=== PATIENT | female | born 1980 | race Caucasian/White ===

== ENCOUNTER 2019-07-27 15:22 | Emergency (ER) | payer OTHER, SELFPAY ==
[2019-07-27 15:50] VITALS: BP 117/65; PULSE 97; RESP 21; TEMP 36.6; O2SAT 97
--- NOTE | 2019-07-27 16:11 | ED.URI ---
HPI - URI/Sore Throat General Chief Complaint: Upper Respiratory Infection Stated Complaint: Cough/Sore Throat/Rash/Difficulty Breathing Time Seen by Provider: 07/27/19 16:01 Source: patient and RN notes reviewed Mode of arrival: ambulatory Limitations: no limitations History of Present Illness HPI Narrative: Patient presents today complaining of a 2-month history of sore throat, headache, congestion, intermittent shortness of breath. She reports a one-week history of some bloody sputum. Denies history of asthma or COPD. States she smokes cigarettes and marijuana. She has been taking Tylenol without relief. 1 week ago, she has developed an allover body rash that starts out at hives, itchy diffusely, then scabs over when she scratches it. No one else at home with similar symptoms or rash MD elicited complaint: cough and sore throat Related Data Allergies Allergy/AdvReac Type Severity Reaction Status Date / Time No Known Allergies Allergy Mild Unverified 03/01/06 11:15 Review of Systems Review of Systems: Narrative: CONSTITUTIONAL: Denies body aches, fever, chills, or sweats. EYES: Denies visual changes, redness, or discharge. ENT: Denies rhinorrhea, congestion, or otalgia.+ Sore throat CARDIOVASCULAR: Denies chest pain, palpitations, or edema. RESPIRATORY: + Cough, occasional shortness of breath GASTROINTESTINAL: Denies abdominal pain, nausea, vomiting, or diarrhea. GENITOURINARY: Denies dysuria or hematuria. SKIN: Denies wounds.+ Pruritic rash MUSCULOSKELETAL: Denies back pain, joint pain, or myalgia. NEUROLOGIC: Denies numbness, tingling, or weakness.+ Headache PSYCH: Denies depression or anxiety. PMFSH Social History Social History (Updated 07/27/19 @ 16:15 by Alyssa Ricketts, [facility], ) Smoking status: Current every day smoker Tobacco type: cigarettes Substance use type: marijuana Comments At time of signature, I have reviewed and agree with nursing past medical, surgical, social and family history unless otherwise noted. Please see nursing chart for further information. There is no relevant family history pertinent to the presenting complaint Exam Narrative: Exam Narrative: GENERAL: Well-appearing, well-nourished, and in no acute distress. HEAD: Normocephalic, atraumatic. EYES: EOMI. No redness or drainage. Conjunctivae normal. ENT: Mucous membranes pink and moist. Nares clear. No rhinorrhea. TMs normal bilaterally. Throat mildly erythematous without edema or exudate. Uvula midline. NECK: Normal AROM. Supple. No lymphadenopathy. CHEST: No respiratory distress. Clear to auscultation. HEART: Regular rate and rhythm. No murmur appreciated. Normal peripheral pulses. ABDOMEN: Soft, nontender, nondistended, normal active bowel sounds. MUSCULOSKELETAL: No bony tenderness. EXTREMITIES: Normal range of motion. No edema. SKIN: Warm, dry. Patient's flanks show faint urticarial lesions. All extremities are covered in pinpoint scabs. NEURO: No focal deficits. Alert and oriented x3. Gait steady. PSYCH: Normal affect. No signs of depression or anxiety. Course Vital Signs Vital signs: Vital Signs Temperature 98 F 07/27/19 15:50 Pulse Rate 97 07/27/19 15:50 Respiratory Rate 21 H 07/27/19 15:50 Blood Pressure 117/65 07/27/19 15:50 Pulse Oximetry 97 07/27/19 15:50 Temperature 98 F 07/27/19 15:50 Pulse Rate 97 07/27/19 15:50 Respiratory Rate 21 H 07/27/19 15:50 Blood Pressure 117/65 07/27/19 15:50 Pulse Oximetry 97 07/27/19 15:50 Reviewed MDM - URI/Sore Throat Differential Diagnosis Differential diagnosis: Likely upper respiratory infection, sinusitis, viral infection, bronchitis and pharyngitis Critical Care Time Critical Care Time Critical Care Time: No Discharge Plan Discharge Clinical Impression: Bronchitis, Acute urticaria Upper respiratory infection Qualifiers: URI type: unspecified URI Qualified Code(s): J06.9 - Acute upper respiratory infection,
== END 2019-07-27 16:20 | disposition home or self-care (01) ==
PROVIDERS: Emergency Provider Nurse Practitioner
DX: J40 Bronchitis, not specified as acute or chronic (principal); L50.9 Urticaria, unspecified; J06.9 Acute upper respiratory infection, unspecified; J02.9 Acute pharyngitis, unspecified; F17.210 Nicotine dependence, cigarettes, uncomplicated
CPT/HCPCS: 99203; G0463

== ENCOUNTER 2025-04-09 11:31 | Emergency (ER) | payer OTHER, SELFPAY ==
--- NOTE | ~2025-04-09 | XR_ITS ---
Examination: XR chest 2V Clinical History: Leg pain; HX COPD Comparison: None Technique: PA and Lateral Findings: Cardiomediastinal silhouette normal size and configuration. Lungs clear. No acute bony abnormality. IMPRESSION: 1. No acute cardiopulmonary findings. Reviewed, dictated and finalized at location R.
[2025-04-09 11:40] VITALS: BP 118/70; PULSE 95; RESP 18; TEMP 36.6; O2SAT 100
--- OUTSIDE RECORDS SUMMARY | 2025-04-09 12:43 | XMS_ITS | Encounter Summary ---
Author Organization [employer] Address 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
--- OUTSIDE RECORDS SUMMARY | 2025-04-09 12:43 | XMS_ITS | Clinical Summary ---
Author Organization [facility] Address [facility] [place] [address] Phone Care Team Providers Care Bindery Supervisor Name Role Phone Leeanne Gamez MD Primary Care Provider [phone] Allergies No known active allergies Medications ARIPiprazole (Abilify) 5 mg tablet Take 1 Tablet (5 mg) by mouth daily. 100 Tablet 2 09/17/2023 Active FLUoxetine (PROzac) 20 mg tablet Take 1 Tablet (20 mg) by mouth daily. 100 Tablet 2 09/17/2023 Active clonazePAM (KlonoPIN) 1 mg tabletIndication s:ALEXANDER (generalized anxiety disorder) Take 1 tablet by mouth once daily 30 Tablet 02/07/2024 Active Active Problems Problem Noted Date Diagnosed Date Tobacco use 04/05/2016 Family History Medical History Relation Name Comments Breast Cancer Maternal Aunt Breast Cancer Maternal Cousin Breast Cancer Mother Relation Name Status Comments Maternal Aunt Alive Maternal Cousin Alive Mother Social History Tobacco Use Types Packs/Day Years Used Date Smoking Tobacco: Every Day Cigarettes Alcohol Use Standard Drinks/Week Comments No 0 (1 standard drink = 0.6 oz pur e alcohol) Comments Unknown Sex and Gender Information Value Date Recorded Sex Assigned at Not on file 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 Gender Identity Not on file Sexual Orientation Not on file Last Filed Vital Signs Vital Sign Reading Time Taken Comments Blood Pressure 114/76 09/13/2023 10:49 AM CDT Pulse 80 09/13/2023 10:49 AM CDT Temperature 36.3 C (97.3 F) 09/13/2023 10:49 AM CDT Respiratory Rate 17 09/24/2022 4:07 PM CDT Oxygen Saturation 96% 09/13/2023 10:49 AM CDT Inhaled Oxygen Concentration - - Weight 92.5 kg (204 lb) 09/13/2023 10:49 AM CDT Height 180.3 cm (5' 11) 09/13/2023 10:49 AM CDT Body Mass Index 28.45 09/13/2023 10:49 AM CDT Plan of Treatment Health Maintenance Due Date Last Done Comments DTAP/TDAP/TD VACCINES (1 - Tdap) 09/17/1999 HEPATITIS B VACCINES (1 of 3 - 19+ 3-dose series) 01/2000 HPV/Cotest (21-29) 2001 HPV VACCINES (1 - 3-dose SCDM series) 09/17/2007 CERVICAL CANCER SCREENING 2010 HPV/Cotest (30-65) 2010 PAP SMEAR 2010 Preventative Visit-Managed Medicaid 09/13/202409/12 BREAST CANCER SCREENING 09/27/2024 09/28/2023 INFLUENZA VACCINE (#1) 2025 Procedures Procedure Name Priority Date/Time Associated Diagnosis Comments MAMMO 3D FABIEN SCREEN BILAT W OR WO CAD Routine 09/28/2023 10:13 AM CDT Breast cancer screening by mammogram from Last 3 Months or Most Recently Relevant to Health Maintenance Results * MAMMO 3D FABIEN SCREEN BILAT W OR WO CAD (09/28/2023 10:13 AM CDT) Anatomical Region Laterality Modality Breast Bilateral Mammography 09/28/2023 10:1 3 AM CDT Impressions 09/28/2023 12:02 PM CDT IMPRESSION: No mammographic evidence for malignancy. In the absence of clinical findings, a screening mammogram should be obtained in one year. BI-RADS 2: Benign findings. Breast composition category: B SS Location 11 Narrative 09/28/2023 12:02 PM CDT Screening 3-D digital breast tomosynthesis and mammogram with CAD. History: Screening. Comparison: None available. Breast composition: Scattered fibroglandular densities. FINDINGS: No suspicious masses, architectural distortion, or grouped microcalcifications. us Leeanne Gamez MD MAMMO ORDERABLES Final Result from Last 3 Months or Most Recently Relevant to Health Maintenance Insurance [facility] PLAN [facility] [address] [place] [address] Care Teams Bindery Supervisor Relationship Specialty Start Date End Date Leeanne Gamez MD [address] [place] [phone] PCP - General Family Practice 09/13/23
--- NOTE | 2025-04-09 12:48 | ED.GENADULT ---
HPI - General Adult General Chief complaint: Extremity Problem,Nontraumatic Stated complaint: Left ankle swelling -Eval for poss DVT Time Seen by Provider: 04/09/25 12:32 Source: patient Mode of arrival: ambulatory Limitations: no limitations History of Present Illness HPI narrative: 44 years old white female came to the ED with a skin condition characterized by painful, red and tender lumps/nodules on the lower legs bilaterally mainly on the left side started 3 days ago Patient denies any fever, chills, nausea, vomiting, coughing or respiratory symptoms. Patient does not take medicine at home, she denies having similar symptoms. Related Data Allergies Allergy/AdvReac Type Severity Reaction Status Date / Time No Known Allergies Allergy Mild Verified 04/09/25 11:32 Review of Systems Review of Systems: All systems reviewed & are unremarkable except as noted in HPI and below PMFSH Social History Social History Smoking status: Current every day smoker Tobacco type: cigarettes Substance use type: marijuana Exam Narrative: General appearance: Well-developed, well-nourished Skin: Normal color, painful, red and tender nodules on the lower legs. Nodules slightly warm to touch, Head: Normocephalic, nontraumatic Eyes: Clear conjunctiva ENT: Oropharynx normal, ears normal, nose normal Neck: Supple, nontender Chest and respiratory: Airway patent, no respiratory distress, no accessory muscle use Heart: Regular rate/rhythm Abdomen: Soft, nontender, no organomegaly, quiet bowel sounds Vascular: Normal peripheral pulses, normal capillary refill. Musculoskeletal: Normal range of motion, nontender back Neurologic: Alert and oriented ?3, PATIENT SERVICES REP is normal as tested, no gross motor deficit Course Vital Signs Vital signs: Vital Signs Temperature 36.6 C 04/09/25 11:40 Pulse Rate 95 04/09/25 11:40 Respiratory Rate 18 04/09/25 11:40 Blood Pressure 118/70 04/09/25 11:40 Pulse Oximetry 100 04/09/25 11:40 Temperature 36.6 C 04/09/25 11:40 Pulse Rate 95 04/09/25 11:40 Respiratory Rate 18 04/09/25 11:40 Blood Pressure 118/70 04/09/25 11:40 Pulse Oximetry 100 04/09/25 11:40 Medical Decision Making MDM Narrative Medical decision making narrative: Differential diagnosis include erythema nodosum is often caused by an underlying infection such as a streptococcal infections, inflammatory bowel disease and . MOST OF THE UNDERLYING CAUSE IS of unknown etiology. Labs includes CBC, CMP, sed rate WBC OF 10.4, SED RATE 54, Urinalysis showed 1+ LEUKOCYTE ESTRACE, Chest x-ray showed NO ACUTE ABNORMALITIES DIAGNOSIS ERYTHEMA NODOSUM, URINARY TRACT INFECTION DISCHARGED ON KEFLEX, AND STEROID Differential Diagnosis Differential Diagnosis: ABOVE Vital Signs Vital Signs: Vital Signs Temperature 36.6 C 04/09/25 11:40 Pulse Rate 95 04/09/25 11:40 Respiratory Rate 18 04/09/25 11:40 Blood Pressure 118/70 04/09/25 11:40 Pulse Oximetry 100 04/09/25 11:40 Temperature 36.6 C 04/09/25 11:40 Pulse Rate 95 04/09/25 11:40 Respiratory Rate 18 04/09/25 11:40 Blood Pressure 118/70 04/09/25 11:40 Pulse Oximetry 100 04/09/25 11:40 Lab Data 04/09/25 13:22 04/09/25 13:22 Labs: Lab Results 04/09/25 04/09/25 04/09/25 Range/Units 13:22 14:35 14:39 WBC 10.4 H (4.5-10.0) K/mm3 RBC 4.60 (4.2-5.4) M/mm3 Hgb 14.1 (12.0-15.0) g/dL Hct 41.4 (37.0-47.0) % MCV 90.0 (80-100) fl MCH 30.7 (26-34) pg MCHC 34.1 (32-36) g/dl RDW 12.8 (11.5-14.5) % Plt Count 310 (150-375) k/mm3 MPV 8.5 (7.4-10.4) fl Immature Gran % (Auto) 0.4 (0-0.5) % Neut % (Auto) 68.5 (45.5-73.1) % Lymph % (Auto) 22.7 (18.3-44.2) % [place] % (Auto) 6.9 (2.6-8.5) % Eos % (Auto) 1.1 (0-4.4) % Baso % (Auto) 0.4 (0.2-1.2) % Lymph # (Auto) 2.35 (0.9-3.2) K/mm3 [place] # (Auto) 0.7 H (0.1-0.6) K/mm3 Eos # (Auto) 0.1 (0-0.3) K/mm3 Baso # (Auto) 0.0 (0.0-0.1) K/mm3 Abs Immat Gran (auto) 0.04 H (0.00-0.031) K/mm3 Absolute Neuts (auto) 7.1 H (1.3-6.7) K/mm3 Absolute Nucleated RBC 0.000 (0.0-0.012) K/mm3 Nucleated RBC % 0.0 (0.0-0.2) % ESR 54 H (0-20) mm/hr Sodium 134 L (137-145) mmol/L Potassium 3.4 (3.4-5.0) mmol/L Chloride 103 (98-107) mmol/L Carbon Dioxide 26 (22-30) mmol/L Anion Gap 5 (4-12) mmol/L BUN 7 (7-17) mg/dL Creatinine 0.61 L (0.7-1.0) mg/dL Estim Creat Clear Calc 112 ml/min Estimated GFR > 60 (59 - ) Glucose 142 H (65-110) mg/dL Calcium 9.0 (8.4-10.2) mg/dL Total Bilirubin 0.6 (0.2-1.3) mg/dL AST 22 (14-36) U/L ALT 19 (6-35) U/L Alkaline Phosphatase 81 (38-126) U/L Total Protein 7.8 (6.3-8.2) g/dL Albumin 4.2 (3.5-5.1) g/dL Urine Color Dark yellow (Yellow) Urine Appearance Cloudy H (Clear) Urine pH 5.0 (5.0-9.0) Ur Specific [place] 1.031 (1.001-1.035) Urine Protein 2+ H (Negative) mg/dL Urine Glucose (UA) Negative (Negative) mg/dL Urine Ketones Trace H (Negative) mg/dL Ur Blood (Man) 3+ H (Negative) Urine Nitrate Negative (Negative) Urine Bilirubin 2+ H (Negative) Urine Urobilinogen 1.0 (<2.0) mg/dL Add Ur Microanalysis Reviewed Leukocyte Esterase Rfl 1+ H (Negative) FLAVIO/UL Urine RBC 11-20 H (0-2) /hpf Urine WBC 0-5 (0-3) /hpf Ur Squamous Epith Cells Few (Few) /hpf Urine Bacteria 1+ H /hpf Urine Casts 3-5 Urine Mucus Present /lpf POC Urine HCG, Qual Negative (Negative) Imaging Data Radiologist's impression: Impressions Chest X-Ray 04/09/25 13:23 IMPRESSION: 1. No acute cardiopulmonary findings. Critical Care Time Critical Care Time Critical Care Time: No Discharge Plan Discharge Clinical Impression: Erythema nodosum Patient Disposition: Home Condition: Stable Instructions: Antibiotic Form, Urinary Tract Infection in Women (DC), Dermatitis (ED) Additional Instructions: RETURN IF SYMPTOMS ARE WORSENING , CALL YOUR FAMILY PHYSICIAN FOR APPOINTMENT, TAKE TYLENOL NEEDED FOR ACHES AND PAIN, CONTINUE HOME MEDICATIONS. Patient Language: Albanian Prescriptions: No Action prednisone 50 mg tablet 50 mg PO DAILY 5 Days Qty: 5 0RF amoxicillin-pot clavulanate [Augmentin] 875-125 mg tablet 1 tablet PO Q12H 10 Days Qty: 20 0RF Follow-up/Referrals: UNKNOWN,DOCTOR [Non-Staff]
[2025-04-09 13:28] LABS: Hematocrit 41.4 % (37.0-47.0); Hemoglobin 14.1 g/dL (12.0-15.0); Immature Granulocyte Percent A 0.4 % (0-0.5); Lymphocytes Absolute Auto 2.35 K/mm3 (0.9-3.2); Mean Corpuscular HGB Conc 34.1 g/dl (32-36); Mean Corpuscular Hemoglobin 30.7 pg (26-34); Mean Corpuscular Volume 90.0 fl (80-100); Nucleated Red Blood Cells Absolute Auto 0.000 K/mm3 (0.0-0.012); Nucleated Red Blood Cells Perc 0.0 % (0.0-0.2); Platelet Count Result 310 k/mm3 (150-375); Red Blood Count 4.60 M/mm3 (4.2-5.4); White Blood Count 10.4 K/mm3 (4.5-10.0)
[2025-04-09 13:52] LABS: Alanine Aminotransferase 19 U/L (6-35); Albumin Level 4.2 g/dL (3.5-5.1); Alkaline Phosphatase 81 U/L (38-126); Anion Gap 5 mmol/L (4-12); Aspartate Amino Transferase 22 U/L (14-36); Bilirubin,Total 0.6 mg/dL (0.2-1.3); Blood Urea Nitrogen 7 mg/dL (7-17); Calcium 9.0 mg/dL (8.4-10.2); Carbon Dioxide 26 mmol/L (22-30); Chloride 103 mmol/L (98-107); Estimated CRCL calculation 112 ml/min; Estimated Glomerular Filt Rate > 60; Glucose 142 mg/dL (65-110); Potassium 3.4 mmol/L (3.4-5.0); Sodium 134 mmol/L (137-145); Total Protein 7.8 g/dL (6.3-8.2)
--- OUTSIDE RECORDS SUMMARY | 2025-04-09 13:52 | XMS_ITS | Clinical Summary ---
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
--- OUTSIDE RECORDS SUMMARY | 2025-04-09 13:52 | XMS_ITS | Encounter Summary ---
Author Organization [employer] Address 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
[2025-04-09 14:40] LABS: BEDSIDEPREGUCG Negative (Negative)
[2025-04-09 14:51] LABS: Add Urine Microscopic? YES; Appearance Urine Cloudy (Clear); Glucose Urine UA Negative (Negative); Leukocyte Esterase Ur 1+ LEU/UL (Negative); Need Manual Microscopic Reviewed; Nitrate Urine Negative (Negative); Specific Grav Ur 1.031 (1.001-1.035)
== END 2025-04-09 15:53 | disposition home or self-care (01) ==
PROVIDERS: Emergency Provider Emergency Medicine; PCP Internal Medicine Infectious Disease
DX: L52 Erythema nodosum (principal); F17.210 Nicotine dependence, cigarettes, uncomplicated
CPT/HCPCS: 36415; 71046; 80053; 81001; 81025; 85025; 85652; 87086; 99283